=== PATIENT | female | born 1950 | race American Indian/Alaskan Native ===

== ENCOUNTER 2019-06-10 23:33 | Emergency (ER) | payer MEDICARE, OTHER ==
--- NOTE | 2019-06-11 00:57 | XRay Report ---
CHEST 1 VIEW INDICATION: Chest Pain. COMPARISON: None. FINDINGS: Support devices: None. Heart: Normal. Lungs/Pleura: No acute pulmonary or pleural findings. IMPRESSION: 1. No acute findings. Signer Name: Crow Prince MD Signed: 06/11/2019 12:52 AM Workstation Name: [id number]
[2019-06-11 01:54] LABS: Hematocrit 34.7 % (30.3-42.9); Hemoglobin 11.7 gm/dl (10.1-14.3); Mean Corpuscular HGB Conc 34 % (30-34); Mean Corpuscular Volume 92 fl (79-97); Platelet Count 256 K/mm3 (140-440); Red Blood Count 3.78 M/mm3 (3.65-5.03); Red Cell Distribution Width 13.6 % (13.2-15.2)
[2019-06-11 02:20] LABS: Albumin 4.1 g/dL (3.9-5); Calcium 9.8 mg/dL (8.4-10.2)
[2019-06-11] MEDS ORDERED: ALUM-MAG HYDROXIDE-SIMETHICONE 200-200-20MG/5ML ORAL LIQD 30 ML PO ONE (02:35)
[2019-06-11] MEDS ORDERED: ONDANSETRON 4 MG ODT TAB PO ONE (02:35)
[2019-06-11] MEDS ORDERED: LIDOCAINE VISCOUS 2% 15 ML ORAL LIQD PO ONE (02:35)
--- NOTE | 2019-06-11 02:38 | Emergency Department Report ---
HPI - General Chief Complaint: Nausea/Vomiting/Diarrhea Time Seen by Provider: 06/11/19 02:20 - HPI HPI: Room 21 The patient is 69-year-old female presenting with a chief complaint of as reflux nausea. The patient states for the past 5-6 days she's had an exacerbation of her acid reflux as a burning pain in the top of her stomach chest and throat. P atient admits to nausea but denies vomiting. Patient admits to increasing eructation. There's been no history of diarrhea. The patient went to see her primary physician 3 days ago and was given a prescription for Bactrim secondary to postnasal drip. Patient denies shortness of breath, diaphoresis, fever or chest pain Location: [See above] Duration: [See above] Quality: [See above] Severity: [See above] Timing: [See above] Context: [See above] Modifying factors: [See above] Associated signs and symptoms: [see above] ED Past Medical Hx - Past Medical History Previous Medical History?: Yes Hx Hypertension: Yes Hx GERD: Yes Additional medical history: Gallstones, Heart Murmur - Surgical History Past Surgical History?: Yes Additional Surgical History: Left knee arthroscopy. Tubal ligation. cervical biopsy - Family History Family history: no significant - Social History Smoking Status: Former Smoker (none 37 years) Substance Use Type: None - Medications Home Medications: Home Medications Medication Instructions Recorded Confirmed Last Taken Type Valsartan/Hydrochlorothiazide 1 tab PO QDAY 04/16/15 04/16/15 04/16/15 History [Diovan Hct 320-25 mg] yes Dicyclomine [Bentyl] 10 mg PO QID PRN #20 capsule 04/17/15 Unknown Rx Ondansetron [Zofran Odt] 4 mg PO QID PRN #20 tab.rapdis 04/17/15 Unknown Rx ED Review of Systems ROS: Stated complaint: ACID REFLUX Other details as noted in HPI Constitutional: denies: diaphoresis Eyes: denies: eye pain ENT: denies: throat pain Respiratory: denies: shortness of breath Cardiovascular: denies: chest pain Endocrine: no symptoms reported Gastrointestinal: abdominal pain, nausea. denies: vomiting, diarrhea Genitourinary: denies: dysuria Musculoskeletal: denies: back pain Neurological: denies: headache Physical Exam - Physical Exam Vital Signs: Vital Signs 06/10/19 23:36 Temperature 98.3 F Pulse Rate 83 Respiratory 18 Rate Blood Pressure 148/41 O2 Sat by Pulse 98 Oximetry Physical Exam: GENERAL: The patient is well-developed well-nourished female lying on stretcher not appearing to be in acute distress. [] HEENT: Normocephalic. Atraumatic. Extraocular motions are intact. Patient has moist mucous membranes. NECK: Supple. Trachea midline CHEST/LUNGS: Clear to auscultation. There is no respiratory distress noted. HEART/CARDIOVASCULAR: Regular. There is no tachycardia. There is no gallop rub or murmur. ABDOMEN: Abdomen is soft, nontender. Patient has normal bowel sounds. There is no abdominal distention. SKIN: There is no rash. There is no edema. There is no diaphoresis. NEURO: The patient is awake, alert, and oriented. The patient is cooperative. The patient has normal speech MUSCULOSKELETAL: There is no evidence of acute injury. ED Course Vital Signs 06/10/19 23:36 Temperature 98.3 F Pulse Rate 83 Respiratory 18 Rate Blood Pressure 148/41 O2 Sat by Pulse 98 Oximetry - Reevaluation(s) Reevaluation #1: 06/11/19 04:15 Patient states she feels much improved after GI cocktail. 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 Add Manual Diff Complete Total Counted 100 Seg Neuts % (Manual) 59.0 Band Neutrophils % 0 Lymphocytes % (Manual) 30.0 Reactive Lymphs % (Man) 0 Monocytes % (Manual) 9.0 H Eosinophils % (Manual) 2.0 Basophils % (Manual) 0 Metamyelocytes % 0 Myelocytes % 0 Promyelocytes % 0 Blast Cells % 0 Nucleated RBC % Not Reportable Seg Neutrophils # Man 2.4 Band Neutrophils # 0.0 Lymphocytes # (Manual) 1.2 Abs React Lymphs (Man) 0.0 Monocytes # (Manual) 0.4 Eosinophils # (Manual) 0.1 Basophils # (Manual) 0.0 Metamyelocytes # 0.0 Myelocytes # 0.0 Promyelocytes # 0.0 Blast Cells # 0.0 WBC Morphology Not Reportable Hypersegmented Neuts Not Reportable Hyposegmented Neuts Not Reportable Hypogranular Neuts Not Reportable Smudge Cells Not Reportable Toxic Granulation Not Reportable Toxic Vacuolation Not Reportable Dohle Bodies Not Reportable Pelger-Huet Anomaly Not Reportable Aracelis Rods Not Reportable Platelet Estimate Consistent w auto Clumped Platelets Not Reportable Plt Clumps, EDTA Not Reportable Large Platelets Not Reportable Giant Platelets Not Reportable Platelet Satelliting Not Reportable Plt Morphology Comment Not Reportable RBC Morphology Not Reportable Dimorphic RBCs Not Reportable Polychromasia Not Reportable Hypochromasia Not Reportable Poikilocytosis Not Reportable Anisocytosis Not Reportable Microcytosis Not Reportable Macrocytosis Not Reportable Spherocytes Not Reportable Pappenheimer Bodies Not Reportable Sickle Cells Not Reportable Target Cells Not Reportable Tear Drop Cells Not Reportable Ovalocytes Not Reportable Helmet Cells Not Reportable Su-[place] Bodies Not Reportable [place] Rings Not Reportable Joanne Cells Not Reportable Bite Cells Not Reportable Crenated Cell Not Reportable Elliptocytes Not Reportable Acanthocytes (Spur) Not Reportable Rouleaux Not Reportable Hemoglobin C Crystals Not Reportable Schistocytes Not Reportable Malaria parasites Not Reportable Daniel Bodies Not Reportable Hem Pathologist Commnt No Sodium 129 L Potassium 4.1 Chloride 90.2 L Carbon Dioxide 23 Anion Gap 20 BUN 23 H Creatinine 2.5 H Estimated GFR 23 BUN/Creatinine Ratio 9 Glucose 95 Calcium 9.8 Total Bilirubin 0.40 AST 26 ALT 15 Alkaline Phosphatase 69 Troponin T < 0.010 Total Protein 7.7 Albumin 4.1 Albumin/Globulin Ratio 1.1 Lipase 23 06/11/19 03:19 WBC RBC Hgb Hct MCV MCH MCHC RDW Plt Count Creek % (Auto) Add Manual Diff Total Counted Seg Neuts % (Manual) Band Neutrophils % Lymphocytes % (Manual) Reactive Lymphs % (Man) Monocytes % (Manual) Eosinophils % (Manual) Basophils % (Manual) Metamyelocytes % Myelocytes % Promyelocytes % Blast Cells % Nucleated RBC % Seg Neutrophils # Man Band Neutrophils # Lymphocytes # (Manual) Abs React Lymphs (Man) Monocytes # (Manual) Eosinophils # (Manual) Basophils # (Manual) Metamyelocytes # Myelocytes # Promyelocytes # Blast Cells # WBC Morphology Hypersegmented Neuts Hyposegmented Neuts Hypogranular Neuts Smudge Cells Toxic Granulation Toxic Vacuolation Dohle Bodies Pelger-Huet Anomaly Aracelis Rods Platelet Estimate Clumped Platelets Plt Clumps, EDTA Large Platelets Giant Platelets Platelet Satelliting Plt Morphology Comment RBC Morphology Dimorphic RBCs Polychromasia Hypochromasia Poikilocytosis Anisocytosis Microcytosis Macrocytosis Spherocytes Pappenheimer Bodies Sickle Cells Target Cells Tear Drop Cells Ovalocytes Helmet Cells Su-[place] Bodies [place] Rings Joanne Cells Bite Cells Crenated Cell Elliptocytes Acanthocytes (Spur) Rouleaux Hemoglobin C Crystals Schistocytes Malaria parasites Daniel Bodies Hem Pathologist Commnt Sodium Potassium Chloride Carbon Dioxide Anion Gap BUN Creatinine Estimated GFR BUN/Creatinine Ratio Glucose Calcium Total Bilirubin AST ALT Alkaline Phosphatase Troponin T < 0.010 Total Protein Albumin Albumin/Globulin Ratio Lipase - EKG Data -: EKG Interpreted by Me EKG shows normal: sinus rhythm Rate: normal - EKG Data When compared to previous EKG there are: previous EKG unavailable Interpretation: other (no ischemic changes seen) - Radiology Data Radiology results: report reviewed (chest x-ray), image reviewed (chest x-ray) interpreted by me: Chest x-ray- no focal infiltrates, no pneumothorax [facility] [address] [place] [address] XRay Report Signed Patient: GIANFRANCO MCGOVERN MR#: [id number] : 1950 Acct:[id number] Age/Sex: 69 / F ADM Date: 06/10/19 Loc: ED Attending Dr: Ordering Physician: PRESTON DEL VALLE MD Date of Service: 06/11/19 Procedure(s): XR chest 1V ap Accession Number(s): [id number] cc: PRESTON DEL VALLE MD Fluoro Time In Minutes: CHEST 1 VIEW INDICATION: Chest Pain. COMPARISON: None. FINDINGS: Support devices: None. Heart: Normal. Lungs/Pleura: No acute pulmonary or pleural findings. IMPRESSION: 1. No acute findings. Signer Name: Crow Pirnce MD Signed: 06/11/2019 12:52 AM Workstation Name: [id number] Transcribed By: ELIF Dictated By: Crow Prince MD Electronically Authenticated By: Crow Prince MD Signed Date/Time: 06/11/1951 DD/ TD/TT: - Differential Diagnosis GERD, acute renal failure, renal insufficiency, ACS Critical care attestation.: If time is entered above; I have spent that time in minutes in the direct care of this critically ill patient, excluding procedure time. ED Disposition Clinical Impression: GERD (gastroesophageal reflux disease), Renal insufficiency Disposition: TO HOME OR SELFCARE Is pt being admited?: No Does the pt Need Aspirin: No Condition: Stable Instructions: Gastroesophageal Reflux Disease (ED) Additional Instructions: Return to the emergency department should you develop worsening symptoms, inability to tolerate food or liquids, high fever or any other concerns Referrals: TAYLOR MCGRAW JR, MD [Primary Care Provider] - 3-5 Days DAPHNEY SORENSEN MD [Staff Physician] - [facility] (Dr Sorensen is a gas plumber (kidney doctor). Please follow-up with him for further evaluation) Time of Disposition: 04:41
[2019-06-11 04:27] LABS: Basophils % (Manual) 0 % (0.0-1.8); Total Cells Counted 100
[2019-06-11 04:28] LABS: Platelet Estimate Consistent w Auto
[2019-06-11 05:14] VITALS: BP 120/47
== END 2019-06-11 05:00 | disposition home or self-care (01) ==
LOC: ED 23:33
DX: K21.9 Gastro-esophageal reflux disease without esophagitis (principal); N28.9 Disorder of kidney and ureter, unspecified; I10 Essential (primary) hypertension; Z87.891 Personal history of nicotine dependence
CPT/HCPCS: 36415; 71045; 80053; 83690; 84484; 85007; 85025; 93005; 93010; 99284; Q0162

== ENCOUNTER 2021-04-13 02:26 | Emergency (ER) | payer MEDICARE, OTHER ==
[2021-04-13 02:55] VITALS: BP 128/58
[2021-04-13] MEDS ORDERED: ACETAMINOPHEN 325 MG TAB PO ONE (04:10)
[2021-04-13 05:04] LABS: Basophils % (Auto) 0.4 % (0.0-1.8); Eosinophils # (Auto) 0.1 K/mm3 (0.0-0.4); Eosinophils % (Auto) 1.2 % (0.0-4.3); Hematocrit 38.7 % (30.3-42.9); Hemoglobin 12.5 gm/dl (10.1-14.3); Lymphocytes # (Auto) 0.8 K/mm3 (1.2-5.4); Lymphocytes % (Auto) 19.1 % (13.4-35.0); Mean Corpuscular HGB Conc 32 % (30-34); Mean Corpuscular Volume 95 fl (79-97); Monocytes # (Auto) 0.4 K/mm3 (0.0-0.8); Monocytes % (Auto) 9.8 % (0.0-7.3); Platelet Count 213 K/mm3 (140-440); Red Blood Count 4.07 M/mm3 (3.65-5.03); Red Cell Distribution Width 13.4 % (13.2-15.2)
--- NOTE | 2021-04-13 05:13 | Cat Scan Report ---
CT cervical spine wo con, CT head/brain wo con INDICATION: Fall - lost balance and fell down on floor. TECHNIQUE: CT head and cervical spine without contrast. All CT scans at this location are performed u sing CT dose reduction for ALARA by means of automated exposure control. COMPARISON: None. FINDINGS: HEAD: Intracranial: Escalante-white matter differentiation is maintained. No intracranial hemorrhage. No extra a xial collection.. No hydrocephalus. No herniation. Sinuses: Paranasal sinuses and mastoid air cells are essentially clear. Orbits: Globes are intact Calvarium: Left parietal scalp contusion. Calvarium is intact. CERVICAL: Alignment: Normal alignment. Vertebrae: No fracture. Vertebral body heights are preserved. C1 and C2 are congruent. Atlantooccipi maye joint is maintained. Spondylolysis: Moderate multilevel cervical spondylosis. Soft tissues: No prevertebral soft tissue thickening. Additional findings: No significant additional findings. IMPRESSION: 1. No acute intracranial abnormality. 2. No acute traumatic abnormality of the cervical spine. Signer Name: Wesley Styles MD Signed: 04/13/2021 5:09 AM Workstation Name: [id number]
--- NOTE | 2021-04-13 05:17 | Cat Scan Report ---
EXAMINATION: CT lumbar spine wo con. HISTORY: Fall - lost balance and fell down on floor TECHNIQUE: Axial CT examination of the lumbar spine was obtained, with sagittal and coronal reformati ons. All CT scans at this location are performed using CT dose reduction for ALARA by means of automa cristal exposure control. COMPARISON: None available. FINDINGS: Alignment: Grade 1 anterolisthesis of L4 on L5 related to severe lower lumbar facet arthropathy. No a cute subluxation. Fracture: No acute fracture. Degenerative Changes: Severe lower lumbar facet arthropathy with moderate disc space height loss at L 4-L5, mild at other levels. There is moderate to severe narrowing of the central canal at L4-L5. Soft Tissues/Retroperitoneal Structures: Unremarkable Other: None IMPRESSION: 1. No acute osseous findings in the lumbar spine. 2. Multilevel lumbar spondylosis with moderate to severe narrowing of the central canal L4-L5. Signer Name: Wesley Styles MD Signed: 04/13/2021 5:13 AM Workstation Name: [id number]
[2021-04-13 05:21] LABS: Alanine Aminotransferase 9 units/L (7-56); Albumin 4.1 g/dL (3.9-5); BUN/Creatinine Ratio 20; Blood Urea Nitrogen 26 mg/dL (7-17); Calcium 9.2 mg/dL (8.4-10.2); Hemolysis Index 4
--- NOTE | 2021-04-13 05:59 | Emergency Department Report ---
ED Fall HPI - General Chief Complaint: Fall Stated Complaint: DIZZINESS/FALL Source: patient Mode of arrival: Ambulatory - History of Present Illness Initial Comments: Patient is a 70-year-old -[place] female with a history of hypertension, GERD, chronic osteoarthritis, chronic pain, PVD and vertigo who presents to the ED with complaint of neck pain, low back pain and headache after she lost ba talia and fell down at home when coming from the bathroom about 1 hour ago. Patient states that because of her chronic osteoarthritis of her knees she usually loses balance and falls down and that this latest episode is not new but that she has had multiple falls due to her chronic bilateral knee and hip pain. Patient denies loss of consciousness, dizziness, syncope, vertigo, nausea and vomiting, chest pain or shortness of breath, numbness and tingling or weakness of upper or lower extremities bilaterally, seizures, cough, change in vision or abdominal pain. 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 denies: numbness, weakness, chest paint, shortness of breath, abdominal pain, hematuria, unable to walk, lightheaded, vertigo, confusion - Related Data Home Medications Medication Instructions Recorded Confirmed Last Taken Valsartan/Hydrochlorothiazide 1 tab PO QDAY 04/16/15 04/16/15 04/16/15 [Diovan Hct 320-25 mg] yes Previous Rx's Medication Instructions Recorded Last Taken Type Dicyclomine [Bentyl] 10 mg PO QID PRN #20 capsule 04/17/15 Unknown Rx Ondansetron [Zofran Odt] 4 mg PO QID PRN #20 tab.rapdis 04/17/15 Unknown Rx Allergies Allergy/AdvReac Type Severity Reaction Status Date / Time ampicillin Allergy Rash Verified 06/11/19 00:01 ED Review of Systems ROS: Stated complaint: DIZZINESS/FALL Other details as noted in HPI Constitutional: denies: chills, fever Eyes: denies: eye pain, eye discharge, vision change ENT: denies: ear pain, throat pain Respiratory: denies: cough, shortness of breath, wheezing Cardiovascular: denies: chest pain, palpitations Endocrine: no symptoms reported Gastrointestinal: denies: abdominal pain, nausea, diarrhea Genitourinary: denies: urgency, dysuria, discharge Musculoskeletal: back pain (lower), arthralgia (neck pain). denies: joint swell ing Skin: denies: rash, lesions Neurological: headache. denies: weakness, paresthesias Psychiatric: denies: anxiety, depression Hematological/Lymphatic: denies: easy bleeding, easy bruising ED Past Medical Hx - Past Medical History Previous Medical History?: Yes Hx Hypertension: Yes Hx GERD: Yes Hx Arthritis: Yes Additional medical history: Gallstones, Heart Murmur. VERTIGO, PVD, CHRONIC PAIN - Surgical History Past Surgical History?: Yes Additional Surgical History: Left knee arthroscopy. Tubal ligation. cervical biopsy - Social History Smoking Status: Never Smoker Substance Use Type: Alcohol - Medications Home Medications: Home Medications Medication Instructions Recorded Confirmed Last Taken Type Valsartan/Hydrochlorothiazide 1 tab PO QDAY 04/16/15 04/16/15 04/16/15 History [Diovan Hct 320-25 mg] yes Dicyclomine [Bentyl] 10 mg PO QID PRN #20 capsule 04/17/15 Unknown Rx Ondansetron [Zofran Odt] 4 mg PO QID PRN #20 tab.rapdis 04/17/15 Unknown Rx ED Physical Exam - General Limitations: No Limitations General appearance: alert, in no apparent distress - Head Head exam: Present: other (Palpable mild localized tenderness and mild swelling on the occipital scalp) - Eye Eye exam: Present: normal appearance, PERRL, EOMI Pupils: Present: normal accommodation - ENT ENT exam: Present: normal exam, normal orophraynx, mucous membranes moist, TM's normal bilaterally, normal external ear exam - Neck Neck exam: Present: normal inspection, tenderness (Palpable cervical paraspinal musculoskeletal tender), full ROM, other (No midline tenderness) - Respiratory Respiratory exam: Present: normal lung sounds bilaterally. Absent: respiratory distress, wheezes, rhonchi, stridor, chest wall tenderness - Cardiovascular Cardiovascular Exam: Present: regular rate, normal rhythm, normal heart sounds. Absent: systolic murmur, diastolic murmur, rubs, gallop - GI/Abdominal GI/Abdominal exam: Present: soft, normal bowel sounds. Absent: tenderness, guarding, rebound, hyperactive bowel sounds, hypoactive bowel sounds, organomegaly - Extremities Exam Extremities exam: Present: normal inspection, full ROM, normal capillary refill - Back Exam Back exam: Present: normal inspection, full ROM, tenderness (Palpable lumbosacral paraspinal musculoskeletal), muscle spasm, paraspinal tenderness. Absent: CVA tenderness (R), CVA tenderness (L), vertebral tenderness - Neurological Exam Neurological exam: Present: alert, oriented X3, CN II-XII intact, normal gait, reflexes normal - Psychiatric Psychiatric exam: Present: normal affect, normal mood - Skin Skin exam: Present: warm, dry, intact, normal color. Absent: rash ED Course Vital Signs 04/13/21 02:50 Temperature 98.7 F Pulse Rate 89 Respiratory 18 Rate Blood Pressure 128/58 O2 Sat by Pulse 99 Oximetry ED Medical Decision Making - Lab Data Result diagrams: 04/13/21 04:38 04/13/21 04:38 - Radiology Data Radiology results: report reviewed, [place] [address] Cat Scan Report Signed Patient: GIANFRANCO MCGOVERN MR#: [id number] : 1950 Acct:[id number] Age/Sex: 70 / F ADM Date: 04/13/21 Loc: ED Attending Dr: Ordering Physician: TAMMI CUMMINGS Date of Service: 04/13/21 Procedure(s): CT head/brain wo con Accession Number(s): [id number] cc: TAMMI CUMMINGS CT cervical spine wo con, CT head/brain wo con INDICATION: Fall - lost balance and fell down on floor. TECHNIQUE: CT head and cervical spine without contrast. All CT scans at this location are performed using CT dose reduction for ALARA by means of automated exposure control. COMPARISON: None. FINDINGS: HEAD: Intracranial: Escalante-white matter differentiation is maintained. No intracranial hemorrhage. No extra axial collection.. No hydrocephalus. No herniation. Sinuses: Paranasal sinuses and mastoid air cells are essentially clear. Orbits: Globes are intact Calvarium: Left parietal scalp contusion. Calvarium is intact. CERVICAL: Alignment: Normal alignment. Vertebrae: No fracture. Vertebral body heights are preserved. C1 and C2 are congruent. Atlantooccipital joint is maintained. Spondylolysis: Moderate multilevel cervical spondylosis. Soft tissues: No prevertebral soft tissue thickening. Additional findings: No significant additional findings. IMPRESSION: 1. No acute intracranial abnormality. 2. No acute traumatic abnormality of the cervical spine. Signer Name: Caleb Styles MD Signed: 04/13/2021 5:09 AM Workstation Name: [id number] Transcribed By: JS Dictated By: CALEB STYLES MD Electronically Authenticated By: CALEB STYLES MD Signed Date/Time: 04/13/21508 DD/ 4 TD/TT: [place] [address] Cat Scan Report Signed Patient: GIANFRANCO MCGOVERN MR#: [id number] : 1950 Acct:[id number] Age/Sex: 70 / F ADM Date: 04/13/21 Loc: ED Attending Dr: Ordering Physician: TAMMI CUMMINGS Date of Service: 04/13/21 Procedure(s): CT lumbar spine wo con Accession Number(s): [id number] cc: TAMMI CUMMINGS EXAMINATION: CT lumbar spine wo con. HISTORY: Fall - lost balance and fell down on floor TECHNIQUE: Axial CT examination of the lumbar spine was obtained, with sagittal and coronal reformations. All CT scans at this location are performed using CT dose reduction for ALARA by means of automated exposure control. COMPARISON: None available. FINDINGS: Alignment: Grade 1 anterolisthesis of L4 on L5 related to severe lower lumbar facet arthropathy. No acute subluxation. Fracture: No acute fracture. Degenerative Changes: Severe lower lumbar facet arthropathy with moderate disc space height loss at L4-L5, mild at other levels. There is moderate to severe narrowing of the central canal at L4-L5. Soft Tissues/Retroperitoneal Structures: Unremarkable Other: None IMPRESSION: 1. No acute osseous findings in the lumbar spine. 2. Multilevel lumbar spondylosis with moderate to severe narrowing of the central canal L4-L5. Signer Name: Caleb Styles MD Signed: 04/13/2021 5:13 AM Workstation Name: [id number] Transcribed By: THOMAS Dictated By: CALEB STYLES MD Electronically Authenticated By: CALEB STYLES MD Signed Date/Time: 04/13/21512 DD/ 9 TD/TT: - Medical Decision Making This is a 70-year-old -[place] female with a history of hypertension, GERD, chronic osteoarthritis, chronic pain, PVD and vertigo who presents to the ED with complaint of neck pain, low back pain and headache after she lost balance and fell down at home when coming from the bathroom about 1 hour ago. Patient states that because of her chronic osteoarthritis of her knees she usually loses balance and falls down and that this latest episode is not new but that she has had multiple falls due to her chronic bilateral knee and hip pain. In the ED, patient is alert and oriented x3 and is not in any distress. Patient is hemodynamically stable and is fully interactive during the physical exam. Lab test results were reviewed and are all nonactionable. Head CT scan without contrast showed no acute intracranial abnormalities or hemorrhage. C-spine CT scan without contrast showed no acute cervical disc fractures or subluxations. The L-spine CT scan without contrast also showed no acute lumbar disc fractures or patient was treated for fever subluxations. Patient was treated for pain in the ED with Tylenol. On reevaluation, patient felt better, pain is well controlled medication. Patient will discharge home and advised to take her regular pain medications at home and to follow-up with her primary care physician in 3 to 5 days for reevaluation. Patient was encouraged to use how walking cane at home and to place a bedside commode to decrease the chances of falling at night in the house. Patient was otherwise advised return to the ED immediately if her symptoms get worse. - Differential Diagnosis Muscle spasm; muscle strain; cervical sprain; head injury Critical care attestation.: If time is entered above; I have spent that time in minutes in the direct care of this critically ill patient, excluding procedure time. ED Disposition Clinical Impression: Cervical paraspinal muscle spasm, Spasm of muscle of lower back, Dehydration, Risk for falls Disposition: HOME / SELF CARE / HOMELESS Is pt being admited?: No Does the pt Need Aspirin: No Condition: Stable Instructions: Muscle Cramps and Spasms, [id number], Fall Prevention in the Home, Adult, [id number], Dehydration, Adult, [id number], Dehydration, Elderly, [id number] Additional Instructions: All lab test results were reviewed and are all nonactionable except for elevated BUN of 26 and creatinine of 1.3 consistent with chronic dehydration due to you are taking of water pills. Therefore take your regular medications, including Tylenol as needed for pain. Drink plenty of fluids in order to replenish those that you lose through taking medications. Follow-up with your primary care physician in 5 to 7 days for reevaluation. Ensure that you use your cane to prevent falls. Consider having a bedside commode to minimize or new movements at night. Return to the ED immediately if your symptoms get worse Referrals: [facility] [Provider Group] - 3-5 Days Time of Disposition: 06:00 Print Language: UZBEK
--- NOTE | 2021-04-14 08:56 | Electrocardiograph Report ---
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
== END 2021-04-13 06:36 | disposition home or self-care (01) ==
LOC: ED 02:26
DX: M62.830 Muscle spasm of back (principal); E86.0 Dehydration; Z91.81 History of falling; K21.9 Gastro-esophageal reflux disease without esophagitis; I10 Essential (primary) hypertension; Z88.8 Allergy status to other drugs, medicaments and biological substances
CPT/HCPCS: 36415; 70450; 72125; 72131; 80053; 84484; 85025; 93005